=== PATIENT | female | born 1980 | race Caucasian/White ===

== ENCOUNTER 2017-02-12 15:51 | Emergency (ER) | payer BC ==
[~2017-02-12] VITALS: Ht 167.6 cm; Wt 90.9 kg
[2017-02-12] MEDS ORDERED: NORCO 5/3251 TABLET PO (16:51)
[2017-02-12 17:18] VITALS: BP 128/94
== END 2017-02-12 17:19 | disposition home or self-care (01) ==
LOC: EME 15:51
DX: S93.402A Sprain of unspecified ligament of left ankle, initial encounter (principal); X50.1XXA Overexertion from prolonged static or awkward postures, initial encounter; Y93.K1 Activity, walking an animal; Y92.838 Other recreation area as the place of occurrence of the external cause
CPT/HCPCS: 73590; 73610; 99281; 99283

== ENCOUNTER 2017-12-03 00:24 | Emergency (ER) | payer BC ==
[~2017-12-03] VITALS: Ht 167.6 cm; Wt 97.2 kg
[~2017-12-03 00:24] MED LIST: NORCO 5/3251 TABLET PO
[2017-12-03 00:59] LABS: HEMATOCRIT 39.1 % (36.0-46.0); HEMOGLOBIN 13.6 G/DL (11.9-15.5); MCH 31.1 PG (29.0-34.0); MCHC 34.8 G/DL (30.0-36.0); MCV 89.5 FL (83-99); PLATELET COUNT 310 K/uL (156-360); RBC DIS.WIDTH-CV 11.9 % (11.8-14.6); RBC DIS.WIDTH-SD 38.5 % (39-53); RED BLOOD COUNT 4.37 M/uL (3.80-5.20); WHITE BLOOD COUNT 7.2 K/uL (4.1-10.2)
[2017-12-03 01:13] LABS: ALBUMIN 4.4 g/dL (3.2-4.8); CHLORIDE 107 mEq/L (99-109); POTASSIUM 3.6 mEq/L (3.7-5.4); SODIUM 139 mEq/L (136-147)
[2017-12-03 01:15] LABS: GLUCOSE 99 mg/dL (70-99); TOTAL PROTEIN 7.3 g/dL (6.4-8.3)
[2017-12-03 01:17] LABS: TOTAL BILIRUBIN 0.4 mg/dL (0.0-1.0)
[2017-12-03 01:19] LABS: ALKALINE PHOSPHATASE 69 IU/L (3-129); CREATININE 0.9 mg/dL (0.6-1.3); GFR ESTIMATE (CALCULATED) > 59 mL/min/
[2017-12-03 01:20] LABS: UREA NITROGEN (BUN) 16 mg/dL (9-23)
[2017-12-03 01:21] LABS: AST (GOT) 26 IU/L (2-34)
[2017-12-03 01:22] LABS: LIPASE 25 U/L (1.0-51.0)
[2017-12-03 01:28] LABS: QUANTITATIVE HCG < 4.0 MIU/ML
[2017-12-03 02:11] LABS: APPEARANCE CLEAR ((CLEAR)); BILIRUBIN NEGATIVE; BLOOD SMALL; COLOR STRAW ((YELLOW)); GLUCOSE (STRIP) NEGATIVE; KETONES NEGATIVE; LEUKOCYTES NEGATIVE; NITRITE NEGATIVE; PROTEIN (STRIP) NEGATIVE; SPECIFIC GRAVITY 1.008 (1.000-1.030); UROBILINOGEN 0.2 MG/DL (0.2-1.0)
[2017-12-03 02:18] LABS: BACTERIA RARE /HPF; EPITHELIAL CELLS RARE /HPF; MUCUS TRACE /LPF; RED BLOOD CELLS NONE SEEN /HPF (0-5); UCUL ADDED? NO; WHITE BLOOD CELLS 0-5 /HPF (0-5)
[2017-12-03 02:28] VITALS: BP 126/83
[2017-12-03 02:44] LABS: ALT (GPT) 25 IU/L (3-49)
== END 2017-12-03 02:28 | disposition home or self-care (01) ==
LOC: EME 00:24
PROVIDERS: Emergency Medicine
DX: R10.11 Right upper quadrant pain (principal); R11.0 Nausea; J45.909 Unspecified asthma, uncomplicated; Z88.5 Allergy status to narcotic agent; Z88.0 Allergy status to penicillin
CPT/HCPCS: 76705; 80053; 81003; 83690; 84702; 85027; 99281; 99285; J7030; S0028

== ENCOUNTER → 2018-01-01 | Outpatient (CLI) | payer BC | END | disposition home or self-care (01) | LOC: NUC 09:27 | DX: R10.9 Unspecified abdominal pain (principal) | CPT/HCPCS: 78226; A9537 ==